=== PATIENT | male | born 1960 | race Hispanic/Latino ===

== ENCOUNTER 2020-11-29 12:21 | Observation (INO) | payer SELFPAY ==
[~2020-11-29] VITALS: Ht 170.2 cm; Wt 92.5 kg
[2020-11-29 12:49] LABS: BASOPHILS % 0.2 % (0.0-1.0); HEMATOCRIT 45.7 % (38.2-49.6); HEMOGLOBIN 16.3 g/dL (14.0-18.0); LYMPHOCYTES # (AUTO) 1.9 (1.0-3.2); LYMPHOCYTES % 12.5 % (18.0-39.1); MEAN CORPUSCULAR HEMOGLOBIN 30.8 pg (28-32); MEAN CORPUSCULAR HGB CONC 35.7 g/dL (31-35); MEAN CORPUSCULAR VOLUME 86.2 fL (81-99); MONOCYTES # (AUTO) 0.7 (0.2-0.8); MONOCYTES % 4.4 % (4.4-11.3); NEUTROPHILS # (AUTO) 12.2 (2.1-6.9); NEUTROPHILS % 82.2 % (38.7-80.0); PLATELET COUNT 187 x10e3/uL (140-360); RED CELL DISTRIBUTION WIDTH 12.7 % (11.7-14.4)
[2020-11-29 13:02] LABS: INR 1.03; PROTHROMBIN TIME 13.7 seconds (11.9-14.5)
[2020-11-29 13:03] LABS: PARTIAL THROMBOPLASTIN TIME 25.3 seconds (23.8-35.5)
[2020-11-29 13:15] LABS: ALANINE AMINOTRANSFERASE 28 IU/L (0-55); ALBUMIN 4.5 g/dL (3.5-5.0); ALBUMIN/GLOBULIN RATIO 1.4 (0.8-2.0); ALKALINE PHOSPHATASE 54 IU/L (40-150); ANION GAP 14.1 mmol/L (8-16); BLOOD UREA NITROGEN 13 mg/dL (7-26); BUN/CREATININE RATIO 13 (6-25); CALCIUM 9.3 mg/dL (8.4-10.2); CARBON DIOXIDE 24 mmol/L (22-29); CHLORIDE 104 mmol/L (98-107); CREATINE KINASE 50 IU/L (30-200); CREATININE, SERUM 0.99 mg/dL (0.72-1.25); EST GLOMERULAR FILTRATION RATE 77 ML/MIN (60-); GLUCOSE 173 mg/dL (74-118); POTASSIUM 4.1 mmol/L (3.5-5.1); SODIUM 138 mmol/L (136-145)
[2020-11-29] MEDS ORDERED: IOPAMIDOL 370 MG/ML 200 ML INFUS..BTL INJ ONE (13:55)
[2020-11-29] MEDS ORDERED: SODIUM CHLORIDE 0.9% 100 ML ONE (13:55)
[2020-11-29 18:18] VITALS: BP 156/91
[2020-11-29 20:00] VITALS: BP 145/82
[2020-11-29 21:21] VITALS: BP 156/91
[2020-11-29] MEDS ORDERED: LISINOPRIL2.5 MG PO (22:02)
[2020-11-29] MEDS ORDERED: METFORMIN HCL850 MG PO (22:02)
[2020-11-29] MEDS ORDERED: VITAMINE D3 PO (22:06)
[2020-11-29] MEDS ORDERED: METFORMIN HCL 850 MG TAB PO PRN (22:30)
[2020-11-29] MEDS ORDERED: DEXTROSE 50% SYRINGE 50 ML IV PRN (22:30)
[2020-11-29] MEDS ORDERED: LISINOPRIL 10 MG TAB PO SCH (22:30)
[2020-11-30] VITALS (7 sets, daily range): BP systolic 112–131; BP diastolic 66–86
[2020-11-30 05:42] LABS: BASOPHILS % 0.2 % (0.0-1.0); EOSINOPHILS % 0.1 % (0.0-6.0); HEMATOCRIT 44.8 % (38.2-49.6); HEMOGLOBIN 15.7 g/dL (14.0-18.0); LYMPHOCYTES # (AUTO) 2.1 (1.0-3.2); LYMPHOCYTES % 13.8 % (18.0-39.1); MEAN CORPUSCULAR HEMOGLOBIN 30.2 pg (28-32); MEAN CORPUSCULAR VOLUME 86.2 fL (81-99); MONOCYTES # (AUTO) 0.8 (0.2-0.8); MONOCYTES % 5.4 % (4.4-11.3); NEUTROPHILS # (AUTO) 12.1 (2.1-6.9); NEUTROPHILS % 79.9 % (38.7-80.0); PLATELET COUNT 197 x10e3/uL (140-360); RED CELL DISTRIBUTION WIDTH 12.7 % (11.7-14.4)
[2020-11-30 06:12] LABS: CHOL/HDL RATIO 4.2 (3.9-4.7)
[2020-11-30] MEDS: INSULIN LISPRO 100 UNIT/1 ML 3ML VIAL SQ SCH ×3 (09:12→16:32)
[2020-11-30 14:13] LABS: CLARITY,URINE CLEAR (CLEAR); COLOR,URINE YELLOW (YELLOW); KETONES,URINE TRACE (NEGATIVE); LEUKOCYTE ESTERASE ,URINE NEGATIVE (NEGATIVE); NITRITE,URINE NEGATIVE (NEGATIVE); PROTEIN,URINE DIPSTICK NEGATIVE (NEGATIVE); URINE UROBILINOGEN 1 mg/dL (0.2 - 1)
[2020-11-30 14:36] LABS: MUCUS,URINE FEW (RARE); RBC,URINE 0-5 /HPF (0-5); WBC,URINE (MAN) 0-5 /HPF (0-5)
[2020-11-30] MEDS ORDERED: LISINOPRIL10 MG PO (15:58)
== END 2020-11-30 18:53 | disposition home or self-care (01) ==
LOC: ER 13:26 → ERHOLD 14:34 → INTOOBSV 14:34 → MED/SURG2 18:02
PROVIDERS: ADMIT Internal Medicine; ATTEND Internal Medicine
DX: H47.091 Other disorders of optic nerve, not elsewhere classified, right eye (principal); E11.65 Type 2 diabetes mellitus with hyperglycemia; E66.9 Obesity, unspecified; Z68.32 Body mass index [BMI] 32.0-32.9, adult; Z20.822 Contact with and (suspected) exposure to COVID-19
CPT/HCPCS: 36415 ×2; 70450; 70496; 70551; 71045; 80053; 80061; 81001; 82550; 82553; 82948 ×2; 83036; 84484; 85025 ×2; 85610; 85730; 93005; 93880; 99284; G0378 ×2; J7050; Q9967; U0002